=== PATIENT | female | born 1930 | race American Indian/Alaskan Native ===

== ENCOUNTER 2018-05-26 10:03 | Inpatient (IN) | payer OTHER ==
[2018-05-26] MEDS ORDERED: Lidocaine Hydrochloride 10 ML INJ ONE (10:26)
[2018-05-26] MEDS ORDERED: ceFAZolin 1 gm in NS 1 GM/100 ML BAG IVPB ONE (10:26)
[2018-05-26 10:45] VITALS: BMI 22.1
[2018-05-26 11:07] LABS: BASO % 0.7 % (0.0-2.0); EOS # 0.1 K/uL (0.0-0.7); EOS % 1.4 % (0.0-4.0); HEMOGLOBIN 13.3 g/dL (11.0-16.0); LYMPH # 1.5 K/uL (1.0-4.3); LYMPH % 26.1 % (20.0-40.0); MEAN CELL VOLUME 80.3 fL (81.0-99.0); MEAN CORPUSCULAR HEMOGLOBIN 26.4 pg (27.0-31.0); MEAN CORPUSCULAR HGB CONC 32.8 g/dL (33.0-37.0); MEAN PLATELET VOLUME 7.4 fL (7.2-11.7); MONO # 0.6 K/uL (0.0-0.8); MONO % 11.4 % (0.0-10.0); NEUT # 3.4 K/uL (1.8-7.0); NEUT % 60.4 % (50.0-75.0); NRBC % 0.1 % (0.0-2.0); RBC 5.03 Mil/uL (3.80-5.20); RED CELL DISTRIBUTION WIDTH 19.1 % (11.5-14.5); WHITE BLOOD COUNT 5.6 K/uL (4.8-10.8)
[2018-05-26 11:22] LABS: BLOOD UREA NITROGEN 7 mg/dL (7-17); CALCIUM 8.4 mg/dl (8.6-10.4); GFR NON-AFRICAN AMERICAN > 60
[2018-05-26 11:23] LABS: INR 1.3; PROTHROMBIN TIME 13.8 SECONDS (9.7-12.2)
[2018-05-26] MEDS ORDERED: Bacitracin 50,000 UNIT in Sodium Chloride 0.9% Irrig 1,000 ML IR SCH (11:30)
--- NOTE | 2018-05-26 11:42 | RAD ---
Date of service: 05/26/2018 PROCEDURE: CHEST RADIOGRAPH, 1 VIEW HISTORY: STAT O.R. CXR DONE IN P.A.T DEPT COMPARISON: None available. FINDINGS: LUNGS: The lungs are well inflated. There is moderate pulmonary venous congestion and mild interstitial pulmonary edema. PLEURA: Small effusions. No pneumothorax. CARDIOVASCULAR: Mild cardiomegaly and prominent central vasculature. There are aortic atherosclerotic calcifications present. There is a left-sided dual lead permanent pacing device. OSSEOUS STRUCTURES: Within normal limits for the patient's age. VISUALIZED UPPER ABDOMEN: Normal. OTHER FINDINGS: None. IMPRESSION: The constellation of findings is compatible with mild congestive heart failure.
[2018-05-26] MEDS ORDERED: Thrombin Topical 5,000 Int Units Spray Kit ONE (14:04)
--- NOTE | 2018-05-26 14:33 | PCM.OP ---
Operative Report - Operative Report Date of Surgery/Procedure: 05/26/18 Time of Surgery/Procedure: 14:31 Surgeon: harshad VELEZ Anesthesia/Sedation: MAC Pre-Operative Diagnosis: Complete heart block; pacemaker at [facility] Post-Operative Diagnosis: Complete heart block; pacemaker at [facility] Indication for Surgery: Complete heart block; pacemaker at [facility] Operative Findings: Complete heart block; pacemaker at [facility] Procedure/Operation Description: Patient was brought to the operating room in a post absorptive sate; after informed consent the pectoral regions were cleansed and prepped in the usual fashion; prophylactic antibiotics were administered Oxygen saturation rhythm and vital signs were monitored; defibrillation pads were placed Next 1% lidocaine was injected subcutaneously; next a 2 cm incision was made over the old pacemaker generator and by blunt dissection carefully avoiding damage to the preexisting leads; next the generator was removed and the pacing leads were checked and found satisfactory and unchanged in their pacing and sensing characteristics; next a new pacemaker generator introduced in the field and attached to the leads; pacing impedance and sense parameters remain unaltered; next the generator was placed in the pocket and the wound was closed in layers. Patient was wheeled back to the recovery room in a stable fashion Complications: none Blood loss: 2 cc Plan Antibiotics 1 gm ancef x 3 doses Hold anticoagulation x 2 days Estimated Blood Loss: 2 cc Complications: None Discharge & Condition: Stable
--- NOTE | 2018-05-26 14:45 | CP.PCM.PN ---
Subjective - Date & Time of Evaluation Date of Evaluation: 05/26/18 Time of Evaluation: 14:33 - Subjective Subjective: Ms. Ponce underwent successful replacement of a pacemaker generator There were no complications She continues to be dizzy Plan Admit ancef 1 gm q8 hours x 3 doses Hold anticoagulation x 2 days Follow up for wound care friday06.01.18 11 am [address] [place] [address] Objective - Vital Signs/Intake and Output Vital Signs (last 24 hours): Temp Pulse Resp BP Pulse Ox 96.7 F L 60 18 107/61 96 05/26/18 11:37 05/26/18 11:37 05/26/18 11:37 05/26/18 11:37 05/26/18 11:37 - Labs Labs: 05/26/18 11:02 05/26/18 11:02 PT 13.8 SECONDS (9.7-12.2) H 05/26/18 11:02 INR 1.3 05/26/18 11:02 APTT 31 SECONDS (21-34) 05/26/18 11:02
[2018-05-27] MEDS ORDERED: Pantoprazole 40 mg EC Tab PO SCH (10:00)
[2018-05-27] MEDS: ceFAZolin IV 1 gm in Dextrose 1 GM/50 ML BAG IVPB SCH ×2 (10:19→16:33)
--- NOTE | 2018-05-27 16:21 | CP.PCM.PN ---
Subjective - Date & Time of Evaluation Date of Evaluation: 05/27/18 Time of Evaluation: 15:00 - Subjective Subjective: Patient seen today, denies any chest pain, sob, dizziness, c/o pain at the incision site left chest area, improved with pain medication No overnigh tevents recorded on monitor - v- paced rhythm vss - stable Objective - Vital Signs/Intake and Output Vital Signs (last 24 hours): Temp Pulse Resp BP Pulse Ox 97.7 F 64 16 100/56 L 97 05/27/18 14:45 05/27/18 14:45 05/27/18 14:45 05/27/18 14:45 05/27/18 14:45 - Medications Medications: Current Medications Acetaminophen (Tylenol 325mg Tab) 650 mg PO Q6 PRN PRN Reason: Pain, moderate (4-7) Last Admin: 05/27/18 06:09 Dose: 650 mg Docusate Sodium (Colace) 100 mg PO BID [facility] Last Admin: 05/27/18 09:32 Dose: 100 mg Hydrochlorothiazide (Hydrodiuril) 25 mg PO DAILY [facility] Last Admin: 05/27/18 09:32 Dose: 25 mg Cefazolin Sodium/Dextrose (Ancef Iv 1 Gm Duplex) 1 gm in 50 mls @ 100 mls/hr IVPB Q8H [facility]; Protocol Stop: 05/28/18 09:01 Last Admin: 05/27/18 10:19 Dose: 100 mls/hr Mirtazapine (Remeron) 15 mg PO HS [facility] Last Admin: 05/26/18 21:35 Dose: 15 mg Pantoprazole Sodium (Protonix Ec Tab) 40 mg PO DAILY [facility] Last Admin: 05/27/18 09:32 Dose: 40 mg Sennosides (Senokot Tab) 8.6 mg PO DAILY [facility] Last Admin: 05/27/18 09:32 Dose: 8.6 mg - Labs Labs: 05/26/18 11:02 05/26/18 11:02 PT 13.8 SECONDS (9.7-12.2) H 05/26/18 11:02 INR 1.3 05/26/18 11:02 APTT 31 SECONDS (21-34) 05/26/18 11:02 Assessment and Plan - Assessment and Plan (Free Text) Assessment: A/P 87 yr old female with pacemaker for heart block underwent successful replacement of a pacemaker generator vss - stable and no overnight events pt c/o left calf pain an dduplex scan lowerextremity left done and negative for - DVT D/w Dr. Sun cleared for discharge home to day and f/u with Dr. Sun offic pasquale Friday at 11 am D/w Dr. whitman, cleared for discharge home today discharge plan discussed with daughter at bed clau e , who understands and agrees with plan instructed to hold eliquis for 2 days and then resume
[2018-05-27 16:27] VITALS: BP 107/62; PULSE 70; RESP 20; TEMP 98.1; O2SAT 95
--- NOTE | 2018-05-27 21:31 | CP.PCM.HP ---
Present on Admission - Present on Admission Any Indicators Present on Admission: No Past Patient History - Past Medical History & Family History Past Medical History?: Yes - Past Social History Smoking Status: Never Smoked - CARDIAC Hx Cardiac Disorders: Yes Hx Hypercholesterolemia: Yes Hx Hypertension: Yes - PULMONARY Hx Respiratory Disorders: Yes Hx Pneumonia: Yes (5 months ago) - NEUROLOGICAL Hx Neurological Disorder: Yes Hx Dizziness: Yes - HEENT Hx HEENT Problems: No - RENAL Hx Chronic Kidney Disease: No - ENDOCRINE/METABOLIC Hx Endocrine Disorders: No - HEMATOLOGICAL/ONCOLOGICAL Hx Blood Disorders: No - INTEGUMENTARY Hx Dermatological Problems: No - MUSCULOSKELETAL/RHEUMATOLOGICAL Hx Musculoskeletal Disorders: Yes Hx Falls: Yes - GASTROINTESTINAL Hx Gastrointestinal Disorders: Yes (poor appetite) Hx Gastroesophageal Reflux: Yes - GENITOURINARY/GYNECOLOGICAL Hx Genitourinary Disorders: Yes (fibroids) - PSYCHIATRIC Hx Psychophysiologic Disorder: No Hx Substance Use: No - SURGICAL HISTORY Hx Surgeries: Yes Hx Cataract Extraction: Yes Hx Hysterectomy: Yes - ANESTHESIA Hx Anesthesia: Yes Hx Anesthesia Reactions: No Hx Malignant Hyperthermia: No Has any member of the family had a problem w/ anesthesia?: No Meds Home Medications: Home Medication List Medication Instructions Recorded Confirmed Type Apixaban [Eliquis] 2.5 mg PO BID #0 05/27/18 05/26/18 Rx Aspirin [Ecotrin] 81 mg PO DAILY #0 05/27/18 05/26/18 Rx Docusate Sodium [Colace] 100 mg PO BID #60 capsule 05/27/18 Rx Hydrochlorothiazide [Microzide] 12.5 mg PO DAILY #30 capsule 05/27/18 Rx Meclizine [Antivert] 12.5 mg PO TID PRN #60 tab 05/27/18 Rx Sennosides A and B [Senokot Tab] 8.6 mg PO DAILY #30 tab 05/27/18 Rx Allergies/Adverse Reactions: Allergies Allergy/AdvReac Type Severity Reaction Status Date / Time No Known Allergies Allergy Verified 05/25/18 12:23 Results - Vital Signs Recent Vital Signs: Last Vital Signs Temp 98.1 F 05/27/18 16:00 Pulse 70 05/27/18 16:00 Resp 20 05/27/18 16:00 BP 107/62 05/27/18 16:00 Pulse Ox 95 05/27/18 16:00 - Labs Result Diagrams: 05/26/18 11:02 05/26/18 11:02
--- NOTE | 2018-05-28 11:05 | VASCLAB ---
Date of service: 05/27/2018 PROCEDURE: Left Lower Extremity Venous Duplex Exam. HISTORY: r/o DVT PRIORS: None. TECHNIQUE: Left common femoral, femoral, popliteal and posterior tibial, peroneal and great saphenous veins were evaluated. Flow was assessed with color Doppler, compressibility, assessment of phasic flow and augmentation response. Report prepared by SHAQ Gomez FINDINGS: LEFT: 1. Common Femoral Vein: 1.1. Compressibility - Fully compressible: Thrombus - None : Flow - Phasic: Augmentation -Normal: Reflux - None. 2. Femoral Vein: 2.1. Compressibility - Fully compressible: Thrombus - None: Flow - Phasic: Augmentation -Normal: Reflux - None. 3. Popliteal Vein: 3.1. Compressibility - Fully compressible: Thrombus - None: Flow - Phasic: Augmentation -Normal: Reflux - None. 4. Posterior Tibial Vein: 4.1. Compressibility - Fully compressible: Thrombus - None: Flow - Phasic: Augmentation -Normal: Reflux - None. 5. Peroneal Vein: 5.1. Compressibility - Fully compressible: Thrombus - None: Flow - Phasic: Augmentation -Normal: Reflux - None. 6. Great Saphenous Vein: 6.1. Compressibility - Fully compressible: Thrombus - None: Flow - Phasic: Augmentation - Normal: Reflux - None. OTHER FINDINGS: IMPRESSION: No evidence of deep or superficial vein thrombosis of the left lower extremity with excellent venous flow. Normal valve function noted of the left side. Normal venous flow noted in the right common femoral vein.
--- NOTE | 2018-05-28 22:09 | CARD ---
APPROVED REPORT Date of service: 05/26/2018 EKG Measurement Heart [id number] <Conclusion> AV dual-paced rhythm with occasional premature ventricular complexes Abnormal ECG
== END 2018-05-27 20:01 | disposition home or self-care (01) | DRG 118 ==
LOC: C.SDS 10:03 → C.9S 14:34 → C.6T 17:02
PROVIDERS: ADMIT Internal Medicine; ATTEND Internal Medicine
PROC: 0JH606Z Insertion of Pacemaker, Dual Chamber into Chest Subcutaneous Tissue and Fascia, Open Approach (ICD-10-PCS; 2018-05-26)
PROC: 0JPT0PZ Removal of Cardiac Rhythm Related Device from Trunk Subcutaneous Tissue and Fascia, Open Approach (ICD-10-PCS; principal; 2018-05-26 11:00)
DX: I44.2 Atrioventricular block, complete (principal); I10 Essential (primary) hypertension; Z79.01 Long term (current) use of anticoagulants; E78.00 Pure hypercholesterolemia, unspecified; K21.9 Gastro-esophageal reflux disease without esophagitis; Z79.82 Long term (current) use of aspirin